=== PATIENT | female | born 1980 | race Caucasian/White ===

== ENCOUNTER 2021-06-20 00:21 | Emergency (ER) | payer OTHER ==
[2021-06-20] MEDS ORDERED: NEURONTIN100 M1 PO (02:15)
== END 2021-06-20 02:25 | disposition home or self-care (01) ==
LOC: FER 00:21
DX: M54.81 Occipital neuralgia (principal); F17.210 Nicotine dependence, cigarettes, uncomplicated; Z88.2 Allergy status to sulfonamides; Z88.5 Allergy status to narcotic agent
CPT/HCPCS: 99283